=== PATIENT | female | born 1955 | race Two or more races ===

== ENCOUNTER 2023-09-15 16:35 | Emergency (ER) | payer OTHER ==
[~2023-09-15] VITALS: Ht 160 cm; Wt 65.8 kg
[~2023-09-15 16:35] MED LIST: SEPTRA DS TABLE1 TAB PO
[2023-09-15] MEDS ORDERED: KETOROLAC TROMETHAMINE 30 MG VIAL IM ONE (19:30)
== END 2023-09-15 20:33 | disposition home or self-care (01) ==
LOC: ER 16:38
DX: I87.2 Venous insufficiency (chronic) (peripheral) (principal)

== ENCOUNTER 2024-02-09 11:25 | Emergency (ER) | payer OTHER ==
[~2024-02-09] VITALS: Ht 162.6 cm; Wt 63.5 kg
[2024-02-09] MEDS ORDERED: KETOROLAC TROMETHAMINE 30 MG VIAL IM ONE (12:15)
[2024-02-09] MEDS ORDERED: KETOROLAC TROMETHAMINE 30 MG VIAL ONE (12:19)
== END 2024-02-09 16:29 | disposition home or self-care (01) ==
LOC: ER 11:27
DX: S62.609A Fracture of unspecified phalanx of unspecified finger, initial encounter for closed fracture (principal); W19.XXXA Unspecified fall, initial encounter; Y93.89 Activity, other specified; Y92.89 Other specified places as the place of occurrence of the external cause; Y99.8 Other external cause status